=== PATIENT | female | born 1995 | race Hispanic/Latino ===

== ENCOUNTER 2024-08-06 11:23 | Inpatient (IN) | payer MEDICARE ==
[~2024-08-06] VITALS: Ht 172.7 cm; Wt 96.2 kg
[2024-08-06] VITALS (7 sets, daily range): BP systolic 107–132; BP diastolic 59–74
[2024-08-06] MEDS ORDERED: HYDROmorphone HCL 1 MG/ML SYR IV ONE (11:30)
[2024-08-06] MEDS ORDERED: PROZAC10 MG PO (11:45)
[2024-08-06] MEDS ORDERED: SODIUM CHLORIDE 0.9% 1,000 ML IV ONE (12:00)
[2024-08-06] MEDS ORDERED: SODIUM CHLORIDE 0.9% 1,000 ML IV SCH (12:15)
[2024-08-06] MEDS ORDERED: HYDROmorphone HCL 1 MG/ML SYR IV PRN ×2 (12:15→13:15)
[2024-08-06] MEDS ORDERED: IBLOOD GLUCOSE TEST STRIP 1 EA TEST XX PRN (13:15)
[2024-08-06] MEDS ORDERED: LACTATED RINGER'S 1,000 ML IV SCH (13:15)
--- NOTE | 2024-08-06 13:54 | NUR ---
BEDSIDE REPORT FROM JOHN SOTO IN THE ER. PT TRANSPORTED TO UNIT VIA STRETCHER. PT IS AWAKE AND ALERT, REPORTS MINIMAL PAIN EXCEPT WITH MOVEMENT. PT REPORTS ANXIETY, SHE IS EMOTIONAL AND CRYING. REASSURED, ALL QUESTIONS ANSWERED. PT MOVED TO BED, WITH RN ASSIST HOLDING LEG. PATIENT'S PAIN INCREASED WITH THE MOVEMENT. VITALS SLIGHTLY OUT OF RANGE DUE TO PAIN AND ANXIETY. DR PABON ROUNDED. EXPLAINED THE SURGERY AND PLAN. PT AND HER FATHER AGREED.
--- NOTE | 2024-08-06 15:30 | NUR ---
JOHN FOFANA FROM OR DOWN TO GET PT. RN AND BOW MAKING MACHINE OPERATOR WERE FINISHING [place] AND PT HAD PUREWICK IN PLACE TO VOID. PT STATED SHE FELT LIKE SHE NEEDED TO VOID, BUT WAS UNABLE TO. SHE DID VOID A VERY SMALL AMOUNT. PT ON LR WITH STRAIGHT TUBING ANCEF AND TXA ATTACHED TO LR BAG. EXPLAINED TO FATHER THAT HE WAS FREE TO STAY IN THE ROOM, LEAVE AND COME BACK. HE LEFT TO MEET HIS OUTSIDE. EXPLAINED THAT SURGERY WOULD TAKE ABOUT AN HOUR, WITH TIME IN THE PACU.
[2024-08-06] MEDS ORDERED: fentaNYL citrate 100 MCG/2 ML VIAL ONE (15:33)
[2024-08-06] MEDS ORDERED: CEFAZOLIN SODIUM 2 GM/20 ML SYR ONE (15:33)
[2024-08-06] MEDS ORDERED: MIDAZOLAM HCL 2 MG/2 ML VIAL ONE (15:33)
[2024-08-06] MEDS ORDERED: TRANEXAMIC ACID IN NACL,ISO-OS 100 ML IV ONE (15:33)
[2024-08-06] MEDS ORDERED: SODIUM CHLORIDE 0.9% 20 ML IV ONE (15:35)
[2024-08-06] MEDS ORDERED: ondansetron HCL 4 MG/2 ML VIAL ONE (15:35)
[2024-08-06] MEDS ORDERED: propofoL 200 MG/20 ML VIAL ONE (15:35)
[2024-08-06] MEDS ORDERED: Ropivacaine HCl 0.5% 30 ML VIAL ONE (15:35)
[2024-08-06] MEDS ORDERED: LIDOCAINE HCL 2% 5 ML SDV ONE (15:35)
[2024-08-06] MEDS ORDERED: dexmedeTOMIDine HCl 200 MCG/2 ML VIAL ONE (15:35)
[2024-08-06] MEDS ORDERED: DEXAMETHASONE SOD PHOS 4 MG/ML VIAL ONE ×2 (15:35→16:11)
[2024-08-06] MEDS ORDERED: ondansetron HCL 4 MG/2 ML VIAL IV PRN (17:00)
[2024-08-06] MEDS ORDERED: IBLOOD GLUCOSE TEST STRIP 1 EA TEST VI PRN (17:00)
[2024-08-06] MEDS ORDERED: fentaNYL citrate 50 MCG/ML SDV IV PRN (17:00)
[2024-08-06] MEDS ORDERED: CEFAZOLIN SODIUM 2 GM/20 ML SYR IV ONE (17:00)
[2024-08-06] MEDS ORDERED: NALOXONE HCL 0.4 MG SYR IV PRN (17:00)
[2024-08-06] MEDS ORDERED: KETOROLAC TROMETHAMINE 30 MG/ML VIAL IV PRN (17:00)
[2024-08-06] MEDS ORDERED: droPERidol 5 MG/2 ML VIAL IV PRN (17:00)
[2024-08-06] MEDS ORDERED: TRANEXAMIC ACID 1,000 MG/10 ML AMP ONE (17:00)
[2024-08-06] MEDS ORDERED: SEVOFLURANE 250 ML BTL INH ONE (17:08)
[2024-08-06] MEDS ORDERED: TRANEXAMIC ACID IN NACL,ISO-OS 1,000 MG/100 ML PIGGYBACK IV ONE (17:15)
[2024-08-06] MEDS ORDERED: HYDROCODONE/ACETA 7.5/325 TAB PO PRN (17:30)
--- NOTE | 2024-08-06 17:51 | NUR ---
PT IS BACK IN HER ROOM. BEDSIDE REPORT FROM PACU RNS. PT IS ALERT AND ORIENTED, FEELS "WEIRD". HAS TOLERATED WATER. LUIS, ALLEVANT, GAUZE, WILBER, AND WALKING BOOT ON LEFT ANKLE. ICE ON TOP OF BOOT. PACU REPORTS 700ML IVF IN CASE, O EBL, 4 OF ZOFRAN IN CASE, DENIES NAUSEA. PUREWICK SILL IN PLACE AND ON SUCTION. FATHER CALLED.
--- NOTE | 2024-08-06 18:03 | NUR ---
notified father, kevon, that pt is out of surgery and back in her room. he will be up soom.
--- NOTE | 2024-08-06 18:43 | NUR ---
08/06/24 1843 Sarah Waters 1715-PT ARRIVED TO PACU ON ROOM AIR, DROWSY, BUT RESPONSIVE TO VERBAL STIMULI. IV SITE IN RAC PATENT AND INFUSING LR PER ORDERS. PT ORIENTED TO PACU. SURGICAL SITE VISUALIZED AND DRSG REMAINS CDI TO L ANKLE. BOOT IN PLACE. CMS APPEARS INTACT. 1718-DR. PABON AT PT BEDSIDE TO DISCUSS CASE. PT MORE AWAKE. 1720-LLE ELEVATED WITH PILLOWS AND ICE APPLIED TO SURGICAL SITE. PT NOTED TO WIGGLE TOES AND DENIES PAIN OR NAUSEA WHEN ASKED. 1724-PT WITH REQUEST TO ELEVATE HOB. HOB ELEVATED TO APPROX 30 DEGREES. PT DENEIS ANY LIGHTHEADEDNESS OR BLURRY VISION W/POSITION CHANGE. VSS. PT PROVIDED ICE WATER AND IS TAKING SMALL SIPS. 1730-PT WITH REPORTS OF MILD PAIN AND RATES PAIN 2/10 IN ANKLE. PT REPORTS THIS TO BE TOLERABLE FOR HER AND DECLINES ANY NEED FOR ADDITIONAL PAIN INTERVENTIONS AT THIS TIME. PT SMILING, TALKATIVE, AND APPEARS IN GOOD SPIRITS. 1740-VS REMAIN STABLE. PT AAOX3 AND ABLE TO MAKE HER NEEDS KNOWN. PT ANSWERING QUESTIONS APPROPRAITELY. PT DENIES NAUSEA WHEN ASKED AND HAS BEEN TAKING PO FLUIDS WELL. PT CONT TO RATE PAIN AT 2/10 AND DENIES NEED FOR ADDITIONAL PAIN INTERVENTIONS AT THIS TIME. MED SURG FLR RN NOTIFIED PT TO ARRIVE TO ROOM 109 SOON. SURGICAL SITE REMAINS CDI. 174-PT TRANSFERRED TO MS RM 109 VIA BED. REPORT GIVEN TO MS JOHN ZHOU. SURGICAL SITE VISUALIZED W/MS RN & REMAINS CDI. ALL QUESTIONS ANSWERED. ALL PERSONAL BELONINGS WERE TAKEN W/PT TO ROOM. BED IN LOW POSITION, WHEELS LOCKED, BILAT RAILS IN PLACE. CALL LIGHT GIVEN TO PT. VS TAKEN.
--- NOTE | 2024-08-06 20:10 | NUR ---
Pt assessed and medications given. Pt denies pain in LLE. Pt received 2 blocks during surgery. VSS. Purewick in place until blocks wear off and pt is able to get up to the bathroom. Pt's family is at bedside. Pt tolerating liquids and solids. Pt ate a sandwich without any neasuea. Safety precautions maintained. Call light within reach. Will continue to monitor.
[2024-08-06] MEDS ORDERED: DICLOFENAC SOD 75 MG TABEC PO SCH (21:00)
[2024-08-07 05:35] VITALS: BP 106/58
--- NOTE | 2024-08-07 05:41 | NUR ---
PT WAS COMPLAINING OF BACK PAIN. REPOSITIONING HEAD OF BED UP BROUGHT THE LEVEL OF PAIN DOWN.
--- NOTE | 2024-08-07 06:15 | NUR ---
Pt rested some during the shift. Pt continued to deny pain and the 2 blocks were still effective for pain management. Purewick in place, good output noted. VSS. Safety precautions maintained. Call light within reach. Will continue to monitor.
[2024-08-07] MEDS ORDERED: ondansetron HCL 4 MG TAB PO SCH (07:00)
[2024-08-07] MEDS ORDERED: CEFAZOLIN SODIUM 2 GM/20 ML SYR IV SCH (07:00)
[2024-08-07] MEDS ORDERED: TRANEXAMIC ACID IN NACL,ISO-OS 1,000 MG/100 ML PIGGYBACK IV SCH (07:00)
--- NOTE | 2024-08-07 07:04 | NUR ---
VERBAL REPORT RECEIVED FROM JOHN HEATON. PT SITS UP IN BED, AWAKE ON PHONE. CALL LIGHT IN REACH, NO REQUESTS AT THIS TIME.
--- NOTE | 2024-08-07 08:13 | NUR ---
FRESH ICE APPLIED TO LLE. LLE ELEVATED IN BED. PHYSICAL ASSESSMENT COMPLETE. CALL LIGHT AND BELONGINGS IN REACH. NO REQUESTS AT THIS TIME.
[2024-08-07] MEDS ORDERED: HYDROCODON-ACE1 EA11 PO (09:00)
[2024-08-07] MEDS ORDERED: DICLOFENAC SODI75 MG PO (09:00)
[2024-08-07 10:52] VITALS: BP 111/64
--- NOTE | 2024-08-07 12:30 | NUR ---
medications reconciled
[2024-08-07 14:10] VITALS: BP 118/70
--- NOTE | 2024-08-07 14:25 | NUR ---
PT'S FAMILY ARRIVES TO TRANSPORT PT HOME. DISCUSSED DISCHARGE INSTRUCTIONS WITH PT AND HER FAMILY, BOTH VERBALIZE UNDERSTANDING. VSS. IV REMOVED, TIP INTACT, GAUZE AND COBAN DRESSING APPLIED TO SITE, PT TOLERATED WELL. ASSISTED PT TO DRESS. PT TRANSFERS TO WHEELCHAIR WITH 1 PERSON ASSIST, PIVOT WITH TTWB TO LLE, DEMONSTRATES THIS WELL. PT LEAVES UNIT VIA WHEELCHAIR ESCORTED BY THIS RN TO PRIVATE CAR DRIVEN BY MOTHER. RX RECEIVED.
--- NOTE | 2024-08-08 06:51 | OR ---
[facility] [address] [place], [place] [address] Signed DATE OF OPERATION: 08/06/2024 SURGEON: Adrian Waller MD PREOPERATIVE DIAGNOSIS: Left trimalleolar ankle fracture dislocation. POSTOPERATIVE DIAGNOSIS: Left trimalleolar ankle fracture dislocation. PROCEDURE PERFORMED: Open reduction and internal fixation, trimalleolar ankle fracture. DIGITAL ASSOCIATE MEDIA DIRECTOR: Paola Christensen PA-C. Paola was present for all portions of procedure. ANESTHESIA: General. TOURNIQUET TIME: 36 minutes. BLOOD LOSS: None. IMPLANTS: 8-hole one-third tubular plate with 9 screws laterally, 2 headless screws medially. BRIEF HISTORY: Geovanna is a 28-year-old female, who suffered a ground-level fall with a fracture dislocation of the ankle, it was incompletely reduced in the ER. Risks and benefits of operative treatment were discussed with her and she elected to proceed. DESCRIPTION OF PROCEDURE: Once consent was obtained, she was taken to the operating room. After adequate anesthesia, she was placed on operating room table with a hip bump. Well-padded proximal thigh tourniquet was placed. The leg was exsanguinated using Esmarch bandage after the prep and the tourniquet inflated to 250 mmHg. The ankle was approached through a standard lateral approach and carried through skin and subcutaneous tissue. The fracture was distracted and cleaned of debris and was carefully reduced using a Electronically Signed By: ADRIAN WALLER MD 08/08/24 0651 PATIENT NAME: GEOVANNA GOLDMAN OPERATIVE REPORT DATE OF : [birth year] REPORT #: [id number] PHYSICIAN: ADRIAN WALLER MD PCP: NO PRIMARY CARE PHYSICIAN REPORT IS CONFIDENTIAL AND NOT TO BE RELEASED WITHOUT AUTHORIZATION [facility] [address], [place] [address] Signed clamp. Once this was accomplished, we checked using the image intensifier and found to be well aligned. A single screw was placed anterior to posterior in a standard AO lag technique. 8-hole plate was then configured. The fracture was then centered. Two screws were placed proximally and distally to hold it. This was then checked again using image intensifier and found to be good. The remaining screw holes were drilled and appropriate length screws were placed. Two cancellous screws were placed in the distal portion of the plate. Attention was then turned to the medial side. A curvilinear incision was made overlying the medial malleolus. The fracture was again distracted and cleaned of debris and periosteum. It was then reduced and cross clamped and checked using image intensifier. Two guidewires for the headless screws were then placed through the fracture engaging the body of the tibia. This was overdrilled and two headless screws were placed independently. Excellent apposition of the fracture was obtained. Both wounds were then cleansed using normal saline. Deep tissues were closed using 2-0 Monocryl. The skin was closed with andrea. Both wounds were dressed with Allevyn, Eliezer wrap, and she was placed in a fracture boot. She tolerated the procedure well. All sponge, needle, and instrument counts were correct. Adrian Waller MD BA/MODL /[id number] Copies: ~ Electronically Signed By: ADRIAN WALLER MD 08/08/24 0651 PATIENT NAME: GEOVANNA GOLDMAN OPERATIVE REPORT DATE OF : [birth year] REPORT #: [id number] PHYSICIAN: ADRIAN WALLER MD PCP: NO PRIMARY CARE PHYSICIAN REPORT IS CONFIDENTIAL AND NOT TO BE RELEASED WITHOUT AUTHORIZATION
== END 2024-08-07 14:25 | disposition home or self-care (01) | DRG 494 ==
LOC: ED 11:23 → MS 12:17
PROVIDERS: ADMIT Specialist; ATTEND Specialist
PROC: 0QSK04Z Reposition Left Fibula with Internal Fixation Device, Open Approach (ICD-10-PCS; 2024-08-06)
PROC: 0QJYXZZ Inspection of Lower Bone, External Approach (ICD-10-PCS; 2024-08-06)
PROC: 0QSH04Z Reposition Left Tibia with Internal Fixation Device, Open Approach (ICD-10-PCS; principal; 2024-08-06 14:42)
DX: S82.852A Displaced trimalleolar fracture of left lower leg, initial encounter for closed fracture (principal); S93.05XA Dislocation of left ankle joint, initial encounter; F41.9 Anxiety disorder, unspecified; F32.A Depression, unspecified; Z79.899 Other long term (current) drug therapy; X50.1XXA Overexertion from prolonged static or awkward postures, initial encounter; Y92.009 Unspecified place in unspecified non-institutional (private) residence as the place of occurrence of the external cause
CPT/HCPCS: 29515; 36415; 64447; 73600; 73610; 76942; 84703; 99284-25; A9270; C1713; J0690; J1100; J1171; J2003; J2250; J2405; J2704; J2795; J3010; J7030